=== PATIENT | male | born 1990 | race Hispanic/Latino ===

== ENCOUNTER 2025-06-14 19:29 | Emergency (ER) | payer OTHER ==
[2025-06-14 19:59] LABS: Hematocrit 45.2 % (42.0-52.0); Hemoglobin 14.3 g/dL (14.0-18.0); MDiff Complete? YES; Mean Corpuscular Hemoglobin 28.5 pg (27.0-31.0); Mean Corpuscular Volume 89.8 fl (78.0-98.0); Platelet Count 232 10x3/uL (130-400); Red Blood Cell (RBC) Count 5.04 mill/uL (4.70-6.10); White Blood Cell (WBC) Count 8.6 10x3/uL (4.8-10.8)
[2025-06-14] MEDS ORDERED: Lidocaine Viscous Sol 2% 15 ml UD Cup ONE (20:04)
[2025-06-14] MEDS ORDERED: Mag-Al 1200 mg/1200 mg/30 ML UDCUP ONE (20:04)
[2025-06-14 20:12] LABS: ALT (SGPT) 45 U/L (Less than 45); AST (SGOT) 33 U/L (11-34); Albumin 4.1 g/dL (3.1-4.5); Alkaline Phosphatase 72 U/L (40-110); Anion Gap 14 mmol/L (10-20); BUN (Urea Nitrogen) 12 mg/dL (8.9-20.6); Bilirubin, Total 0.2 mg/dL (0.3-1.2); Calc. Creatinine Clearance 0 mL/min (70-130); Calcium 9.0 mg/dL (7.8-10.44); Carbon Dioxide 23 mmol/L (22-29); Chloride 106 mmol/L (98-107); Globulin 2.9 g/dL (2.4-3.5); Glucose 119 mg/dL (70-105); Lipase 25 U/L (8-78); Potassium 3.7 mmol/L (3.5-5.1); Sodium 139 mmol/L (136-145)
[2025-06-14 20:14] LABS: Troponin I 0.011 ng/mL (< 0.028)
[2025-06-14] MEDS ORDERED: Famotidine 20 MG TAB ONE (22:05)
[2025-06-14] MEDS ORDERED: Acetaminophen 500 MG TAB ONE (22:11)
[2025-06-14 22:29] LABS: Troponin I Less than 0.010 ng/mL (< 0.028)
== END 2025-06-14 22:44 | disposition home or self-care (01) ==
LOC: MADERS 19:29
DX: R07.2 Precordial pain (principal); R29.700 NIHSS score 0; F17.210 Nicotine dependence, cigarettes, uncomplicated; Z79.899 Other long term (current) drug therapy
CPT/HCPCS: 36415; 71045; 80053; 83690; 83880; 84484; 85025; 93005